=== PATIENT | male | born 1995 | race African-American/Black ===

== ENCOUNTER 2020-04-03 08:46 | Emergency (ER) | payer OTHER ==
[~2020-04-03] VITALS: Ht 193 cm; Wt 90.7 kg
[2020-04-03 09:10] LABS: ABSOLUTE EOSINOPHILS 0.2 thou/uL (0.0-0.7); ABSOLUTE LYMPHOCYTES 1.7 thou/uL (0.8-5.3); ABSOLUTE MONOCYTES 0.5 thou/uL (0.0-1.2); ABSOLUTE NEUTROPHILS 1.9 thou/uL (1.6-8.1); BASOPHILS 0.9 %; EOSINOPHILS 4.2 %; HEMATOCRIT 46.9 % (42.0-52.0); HEMOGLOBIN 15.9 gm/dL (14.0-18.0); LYMPHOCYTES 39.8 %; MCH 29.9 pg (26.0-34.0); MCHC 33.9 g/dL (28.0-37.0); MCV 88.1 fL (80.0-100.0); MPV 7.7 fl. (7.2-11.1); NUCLEATED RBCS 0 /100WBC; PLATELET COUNT* 262 thou/uL (150-400); POLYS 44.1 %; RBC 5.33 mil/uL (4.50-6.00); RDW-CV 14.2 % (10.5-14.5); WBC 4.3 thou/uL (4.0-11.0)
[2020-04-03 09:20] LABS: CREATININE 1.3 mg/dL (0.6-1.3)
[2020-04-03 09:24] LABS: TOTAL BILIRUBIN 0.5 mg/dL (<0.1-1.0)
[2020-04-03] MEDS ORDERED: FLEXERIL PO (10:37)
[2020-04-03] MEDS ORDERED: NORCO 5-325 TA1 EAC2 PO (10:37)
[2020-04-03 10:54] VITALS: BP 131/7
--- NOTE | 2020-04-03 15:43 | EKG ---
[place] [address] ELECTROCARDIOGRAM REPORT Name: BETHANY HUFF Room: [facility]#: [id number] Admission: 04/03/20 Attend Phys: Discharge: 04/03/20 Date of : 89 Date of Service: 04/03/20903 Report #: [id number] THIS REPORT FOR: //name// [facility] ED Test Date: 2020-04-03 Test Time: 09:04:09 Pat Name: BETHANY HUFF Department: Room: Gender: [employer]: Jojo : 1995 Requested By: Gabo Brown Order Number: [id number] MD: Judson Sage Measurements Intervals [place] Rate: 83 P: 92 NC: 191 QRS: 68 QRSD: 95 T: 73 QT: 398 QTc: 468 Interpretive Statements Sinus rhythm No previous ECG available for comparison Electronically Signed On 04-03-2020 15:43:34 CDT by Judson Sage [email or web address] <ELECTRONICALLY SIGNED> By: Judson Sage MD, [facility] 04/03/20 1543 3 3 Judson Sage MD, FACC /EPI
== END 2020-04-03 10:54 | disposition home or self-care (01) ==
LOC: M.ERS 08:46
PROVIDERS: Emergency Medicine Emergency Medical Services
DX: M54.5 Low back pain (principal); M25.552 Pain in left hip; V47.5XXA Car driver injured in collision with fixed or stationary object in traffic accident, initial encounter; Y93.89 Activity, other specified; Y92.89 Other specified places as the place of occurrence of the external cause; Y99.8 Other external cause status